=== PATIENT | male | born 1955 | race African-American/Black ===

== ENCOUNTER 2019-07-14 15:47 | Emergency (ER) | payer MEDICARE ==
[~2019-07-14] VITALS: Ht 177.8 cm; Wt 102.1 kg
[2019-07-14 15:50] VITALS: BP 150/92
--- NOTE | 2019-07-14 16:09 | PHYS DOC ---
Adult General Chief Complaint Chief Complaint: NEURO SYMPTOMS/DEFICITS [facility] HPI Patient is a 64 year old male who presents with numbness. Patient states he was at work and felt dehydrated and had a discomfort feeling in right side of his his colostomy and didn't feel numbness of upper and lower extremity at 1400 today that improved but is still feeling numbness. Patient denies headache, blurred vision, nausea and vomiting, weakness, fever and chills, history of the same problem. Review of Systems Review of Systems Constitutional: Denies fever or chills [] Eyes: Denies change in visual acuity, redness, or eye pain [] HENT: Denies nasal congestion or sore throat [] Respiratory: Denies cough or shortness of breath [] Cardiovascular: No additional information not addressed in HPI [] GI: Denies abdominal pain, nausea, vomiting, bloody stools or diarrhea [] : Denies dysuria or hematuria [] Musculoskeletal: Denies back pain or joint pain [] Integument: Denies rash or skin lesions [] Neurologic: Denies headache, focal weakness, reports sensory changes [] Endocrine: Denies polyuria or polydipsia [] All other systems were reviewed and found to be within normal limits, except as documented in this note. Current Medications Current Medications Current Medications Medications (Trade) Dose Ordered Sig/Annette Start Time Stop Time Status Last Admin Dose Admin Sodium Chloride 500 ml @ 500 mls/hr 1X ONCE 07/14/19 17:45 07/14/19 18:44 07/14/19 17:52 500 MLS/HR Allergies Allergies Allergies Coded Allergies Type Severity Reaction Last Updated Verified No Known Drug Allergies 07/14/19 No Physical Exam Physical Exam Constitutional: Well developed, well nourished, no acute distress, non-toxic appearance. [] HENT: Normocephalic, atraumatic, bilateral external ears normal, oropharynx moist, no oral exudates, nose normal. [] Eyes: PERRLA, EOMI, conjunctiva normal, no discharge. [] Neck: Normal range of motion, no tenderness, supple, no stridor. [] Cardiovascular:Heart rate regular rhythm, no murmur [] Lungs & Thorax: Bilateral breath sounds clear to auscultation [] Abdomen: Bowel sounds normal, soft, no tenderness, no masses, no pulsatile masses. [] Skin: Warm, dry, no erythema, no rash. [] Back: No tenderness, no CVA tenderness. [] Extremities: No tenderness, no cyanosis, no clubbing, ROM intact, no edema. [] Neurologic: Alert and oriented X 3, normal motor function, normal sensory function, no focal deficits noted. [] Psychologic: Affect normal, judgement normal, mood normal. [] Current Patient Data Vital Signs Vital Signs Date Time Temp Pulse Resp B/P (MAP) Pulse Ox O2 Delivery O2 Flow Rate FiO2 07/14/19 15:48 97.9 94 16 150/92 (111) 94 Room Air 97.9 Lab Values Laboratory Tests Test 07/14/19 15:51 07/14/19 16:02 07/14/19 17:18 Glucose (Fingerstick) 96 mg/dL (70-99) White Blood Count 5.9 x10^3/uL (4.0-11.0) Red Blood Count 5.53 x10^6/uL (4.30-5.70) Hemoglobin 15.2 g/dL (13.0-17.5) Hematocrit 45.3 % (39.0-53.0) Mean Corpuscular Volume 82 fL (79-100) Mean Corpuscular Hemoglobin 28 pg (25-35) Mean Corpuscular Hemoglobin Concent 34 g/dL (31-37) Red Cell Distribution Width 14.7 % (11.5-14.5) H Platelet Count 179 x10^3/uL (140-400) Neutrophils (%) (Auto) 68 % (31-73) Lymphocytes (%) (Auto) 22 % (24-48) L Monocytes (%) (Auto) 7 % (0-9) Eosinophils (%) (Auto) 2 % (0-3) Basophils (%) (Auto) 1 % (0-3) Neutrophils # (Auto) 4.0 x10^3/uL (1.8-7.7) Lymphocytes # (Auto) 1.3 x10^3/uL (1.0-4.8) Monocytes # (Auto) 0.4 x10^3/uL (0.0-1.1) Eosinophils # (Auto) 0.1 x10^3/uL (0.0-0.7) Basophils # (Auto) 0.1 x10^3/uL (0.0-0.2) Prothrombin Time 12.5 SEC (11.7-14.0) Prothrombin Time INR 1.0 (0.8-1.1) Sodium Level 139 mmol/L (136-145) Potassium Level 3.6 mmol/L (3.5-5.1) Chloride Level 105 mmol/L (98-107) Carbon Dioxide Level 29 mmol/L (21-32) Anion Gap 5 (6-14) L Blood Urea Nitrogen 17 mg/dL (8-26) Creatinine 1.4 mg/dL (0.7-1.3) H Estimated GFR (Cockcroft-Gault) 61.4 BUN/Creatinine Ratio 12 (6-20) Glucose Level 97 mg/dL (70-99) Calcium Level 9.7 mg/dL (8.5-10.1) Magnesium Level 2.0 mg/dL (1.8-2.4) Total Bilirubin 0.5 mg/dL (0.2-1.0) Aspartate Amino Transferase (AST) 26 U/L (15-37) Alanine Aminotransferase (ALT) 39 U/L (16-63) Alkaline Phosphatase 61 U/L (46-116) Creatine Kinase 213 U/L (39-308) Troponin I Quantitative < 0.017 ng/mL (0.000-0.055) IA-Ieo-Z-Type Natriuretic Peptide 14 pg/mL (0-124) Total Protein 8.4 g/dL (6.4-8.2) H Albumin 4.5 g/dL (3.4-5.0) Albumin/Globulin Ratio 1.2 (1.0-1.7) Urine Collection Type Unknown Urine Color Yellow Urine Clarity Clear Urine pH 5.5 Urine Specific [place] 1.015 Urine Protein Negative mg/dL (NEG-TRACE) Urine Glucose (UA) Negative mg/dL (NEG) Urine Ketones (Stick) Negative mg/dL (NEG) Urine Blood Negative (NEG) Urine Nitrite Negative (NEG) Urine Bilirubin Negative (NEG) Urine Urobilinogen Dipstick 1.0 mg/dL (0.2 mg/dL) Urine Leukocyte Esterase Negative (NEG) Urine RBC 0 /HPF (0-2) Urine WBC Rare /HPF (0-4) Urine Bacteria 0 /HPF (0-FEW) Laboratory Tests 07/14/19 16:02 Laboratory Tests 07/14/19 16:02 EKG EKG EKG interpreted by me. EKG at 1635 showed normal sinus rhythm at rate of 76, left atrial abnormality, left garcía axis, nonspecific T abnormality [address] and T-wave abnormalities. Radiology/Procedures Radiology/Procedures [][place] [id number] IMAGING REPORT Signed PATIENT: SHERRY COLMENARES ACCOUNT: [id number] : 1955 LOCATION: ER AGE: 64 SEX: M EXAM STATUS: REG ER ORD. PHYSICIAN: GEENA RANDHAWA MD REASON: right-sided numbness PROCEDURE: CHEST PA & LATERAL Chest, PA and Lateral: Technique: PA and lateral views of the chest were obtained. History: Right-sided numbness. Comparison: None. Findings: The heart and pulmonary vasculature appear within normal limits. The lungs are clear. The pleural margins are clear. Impression: No acute chest process is seen. Electronically signed by: Sajan Hirsch MD (07/14/2019 4:46 PM) [id number] DICTATED and SIGNED BY: SAJAN HIRSCH MD DATE: 07/14/[address] [address] IMAGING REPORT Signed PATIENT: SHERRY COLMENARES ACCOUNT: [id number] : 1955 LOCATION: ER AGE: 64 SEX: M EXAM STATUS: REG ER ORD. PHYSICIAN: GEENA RANDHAWA MD REASON: right-sided numbness PROCEDURE: CT HEAD WO CONTRAST CT HEAD WITHOUT CONTRAST 07/14/2019 3:58 PM Indication: Right-sided numbness Comparison: None available Procedure: Multidetector CT imaging of the head was performed without the administration of contrast. Findings: There is no evidence of acute intracranial hemorrhage. There is no evidence of acute territorial infarction. Please note that CT is limited for evaluation of acute ischemia. If there is continued clinical concern for acute ischemia, MRI offers more sensitive evaluation No mass effect or midline shift is identified . The ventricles and basilar cisterns have an appropriate appearance. No abnormal extra-axial fluid collections are seen. No acute osseous changes are identified. A metopic suture noted incidentally. Impression: No evidence of acute intracranial abnormality CT DOSING PQRS STATEMENT: One or more of the following individualized dose reduction techniques were utilized for this examination: 1. Automated exposure control 2. Adjustment of the mA and/or kV according to patient size 3. Use of iterative reconstruction technique Electronically signed by: Claudio Hines MD (07/14/2019 4:24 PM) [facility] DICTATED and SIGNED BY: CLAUDIO HINES MD DATE: 07/14/19 8005 Course & Med Decision Making Course & Med Decision Making Pertinent Labs and Imaging studies reviewed. (See chart for details) discharge: I've spoken with the patient and/or caregivers. I've explained the patient's condition, diagnosis and treatment plan based on information available to me at this time. I've answered the patient's and/or caregivers questions and addressed any concerns. The patient and/or caregivers have a good understanding the patient's diagnosis, condition and treatment plan as can be expected at this point. Vital signs have been stabilized. The patient's condition is stable for discharge from the emergency department. The patient will pursue further outpatient evaluation with her primary care provider or other designated consulting physician as outlined in the discharge instructions. Patient and/or caregivers are agreeable to this plan of care and follow-up instructions have been explained in detail. The patient and/or caregivers have received these instructions in written format and expressed understanding of these discharge instructions. The patient and her caregivers are aware that if any significant change in condition or worsening of symptoms should prompt him to immediately return to this of the closest emergency department. If an emergent department is not readily available I would enco urage him to call 911. Colleen Disclaimer Dragon Disclaimer This electronic medical record was generated, in whole or in part, using a voice recognition dictation system. Departure Departure Impression: Primary Impression: Paresthesia Additional Impression: Renal insufficiency Disposition: HOME, SELF-CARE (at 1817) Condition: IMPROVED Referrals: UNKNOWN PCP NAME (PCP) Patient Instructions: Dehydration, Adult, Paresthesia Additional Instructions: Drink plenty of liquids Follow-up with your primary care physician in 3-5 days Return to ER if not getting better Scripts Thiamine Mononitrate (VITAMIN B-1) 100 Mg Tablet 1 TAB PO DAILY for 30 Days, #30 TAB 0 Refills Prov: GEENA RANDHAWA MD 07/14/19 NIHSS Stroke Scale NIH Stroke Scale: NIH Stroke Scale Response (Comments) Value Level of Consciousness: 0 Alert/Responsive 0 LOC Questions: 0 Answers both correctly 0 LOC Commands: 0 Performs both tasks 0 Best Gaze: 0 Normal 0 Visual: 0 No visual loss 0 Facial Palsy: 0 Normal, symmetrical 0 Motor - Left Arm 0 No drift 0 Motor - Right Arm 0 No drift 0 Motor - Left Leg 0 No drift 0 Motor: Right Leg 0 No drift 0 Limb Ataxia: 0 Absent 0 Sensory: 0 No loss 0 Best Language: 0 Normal 0 Dysathria: 0 Normal 0 Extinction and Inattention: 0 Normal 0 Total 0 Problem Qualifiers GEENA RANDHAWA MD Jul 14, 2019 16:09
[2019-07-14 16:12] LABS: BASO # 0.1 x10^3/uL (0.0-0.2); BASO % 1 % (0-3); EOS # 0.1 x10^3/uL (0.0-0.7); EOS % 2 % (0-3); HEMATOCRIT 45.3 % (39.0-53.0); HEMOGLOBIN 15.2 g/dL (13.0-17.5); LYMPH # 1.3 x10^3/uL (1.0-4.8); LYMPH % 22 % (24-48); MEAN CORPUSCULAR HEMOGLOBIN 28 pg (25-35); MEAN CORPUSCULAR HGB CONC 34 g/dL (31-37); MEAN CORPUSCULAR VOLUME 82 fL (79-100); MONO # 0.4 x10^3/uL (0.0-1.1); MONO % 7 % (0-9); NEUT % 68 % (31-73); PLATELET COUNT 179 x10^3/uL (140-400); RED BLOOD COUNT 5.53 x10^6/uL (4.30-5.70); RED CELL DISTRIBUTION WIDTH 14.7 % (11.5-14.5); WHITE BLOOD COUNT 5.9 x10^3/uL (4.0-11.0)
[2019-07-14 16:21] LABS: PROTHROMBIN TIME PATIENT 12.5 SEC (11.7-14.0)
[2019-07-14 16:23] LABS: CALCIUM 9.7 mg/dL (8.5-10.1); CREATININE 1.4 mg/dL (0.7-1.3); GFR 61.4; POTASSIUM 3.6 mmol/L (3.5-5.1)
--- NOTE | 2019-07-14 16:27 | RAD ---
CT HEAD WITHOUT CONTRAST 07/14/2019 3:58 PM Indication: Right-sided numbness Comparison: None available Procedure: Multidetector CT imaging of the head was performed without the administration of contrast. Findings: There is no evidence of acute intracranial hemorrhage. There is no evidence of acute territorial infarction. Please note that CT is limited for evaluation of acute ischemia. If there is continued clinical concern for acute ischemia, MRI offers more sensitive evaluation No mass effect or midline shift is identified . The ventricles and basilar cisterns have an appropriate appearance. No abnormal extra-axial fluid collections are seen. No acute osseous changes are identified. A metopic suture noted incidentally. Impression: No evidence of acute intracranial abnormality CT DOSING PQRS STATEMENT: One or more of the following individualized dose reduction techniques were utilized for this examination: 1. Automated exposure control 2. Adjustment of the mA and/or kV according to patient size 3. Use of iterative reconstruction technique Electronically signed by: Claudio French MD (07/14/2019 4:24 PM) [facility]
[2019-07-14 16:30] LABS: ALBUMIN 4.5 g/dL (3.4-5.0); ALBUMIN/GLOBULIN RATIO 1.2 (1.0-1.7); TOTAL BILIRUBIN 0.5 mg/dL (0.2-1.0); TOTAL PROTEIN 8.4 g/dL (6.4-8.2)
--- NOTE | 2019-07-14 16:48 | RAD ---
Chest, PA and Lateral: Technique: PA and lateral views of the chest were obtained. History: Right-sided numbness. Comparison: None. Findings: The heart and pulmonary vasculature appear within normal limits. The lungs are clear. The pleural margins are clear. Impression: No acute chest process is seen. Electronically signed by: Sajan Hirsch MD (07/14/2019 4:46 PM) [id number]
[2019-07-14 17:31] LABS: BILIRUBIN,URINE NEGATIVE (NEG); CLARITY,URINE CLEAR; COLOR,URINE YELLOW; NITRITE,URINE NEGATIVE (NEG); PH,URINE 5.5; PROTEIN,URINE NEGATIVE (NEG-TRACE)
[2019-07-14 17:41] LABS: BACTERIA,URINE 0 /HPF (0-FEW); RBC,URINE 0 /HPF (0-2); WBC,URINE RARE /HPF (0-4)
[2019-07-14] MEDS ORDERED: IV NORMAL SALINE 500ML BAG 500 ML IV ONE (17:45)
[2019-07-14] MEDS ORDERED: THIA100T22 PO (18:18)
--- NOTE | 2019-07-15 10:53 | EKG ---
[facility] [address] [place] [address] Test Date: 2019-07-14 Test Time: 16:35:01 Pat Name: SHERRY COLMENARES Department: Room: Gender: M Content Publisher: : 1955 Requested By: GEENA RANDHAWA Order Number: [id number] Reading MD: Daron Nava MD Measurements Intervals [place] Rate: 75 P: 49 CA: 140 QRS: -14 QRSD: 100 T: 34 QT: 406 QTc: 456 Interpretive Statements SINUS RHYTHM Electronically Signed On 07-25-2019 12:53:17 CDT by Daron Nava MD
== END 2019-07-14 18:45 | disposition home or self-care (01) ==
LOC: ER 15:47
DX: R20.2 Paresthesia of skin (principal); N18.9 Chronic kidney disease, unspecified; E86.0 Dehydration; R51 Headache
CPT/HCPCS: 36415; 70450; 71046; 80053; 81001; 82550; 82962; 83735; 83880; 84484; 85025; 85610; 93005; 99285; J7040